=== PATIENT | male | born 1955 | race African-American/Black ===

== ENCOUNTER 2018-05-07 19:33 | Emergency (ER) | payer SELFPAY ==
[~2018-05-07 19:33] MED LIST: ISOVUE-370 76%-LOCM 1 ML ONE
[2018-05-07 20:07] LABS: #Basophils 0.1 thou/uL (0.0-0.2); #Eosinphils 0.1 thou/uL (0.0-0.7); #Lymphocytes 2.7 thou/uL (1.20-3.40); #Monocytes 0.7 thou/uL (0.11-0.59); #Neutrophils 6.8 thou/uL (1.40-6.50); %Basophils 0.6 % (0.0-1.0); %Lymphocytes 25.7 % (21.0-51.0); %Monocytes 6.4 % (0.0-10.0); %Neutrophils 66.2 % (42.0-75.0); Hemoglobin 16.6 g/dL (14.0-18.0); Mean Corpuscular HGB CONC 33.7 g/dL (32.0-36.0); Mean Corpuscular Hemoglobin 33.5 pg (27.0-31.0); Mean Corpuscular Volume 99.4 fL (78.0-98.0); Mean Platelet Volume 8.3 fL (7.4-10.4); Platelet Count 200 thou/uL (130-400); RBC Distribution Width 11.9 % (11.5-14.5); Red Blood Cell (RBC) Count 4.95 mill/uL (4.70-6.10); White Blood Cell (WBC) Count 10.3 thou/uL (4.8-10.8)
[2018-05-07 20:27] LABS: Anion Gap 11 mmol/L (10-20); BUN (Urea Nitrogen) 16 mg/dL (8.4-25.7); Calc. Creatinine Clearance 0 mL/min (70-130); Calcium 9.9 mg/dL (7.8-10.44); Carbon Dioxide 28 mmol/L (22-29); Chloride 104 mmol/L (98-107); Estimated GFR-MDRD 79; Glucose 71 mg/dL (70-105); Potassium 3.9 mmol/L (3.5-5.1); Sodium 139 mmol/L (136-145)
--- NOTE | 2018-05-07 20:43 | CT ---
HEAD CT NONCONTRAST: Date: 05/07/18 INDICATION: Post-traumatic injury, pain. FINDINGS: No evidence of acute intracranial hemorrhage or mass effect, midline shift, or ventriculomegaly. IMPRESSION: No acute intracranial abnormality. Notification of results placed at 1958 hours on 05/07/18. CODE CR. POS: [facility]
--- NOTE | 2018-05-07 20:47 | CT ---
CERVICAL SPINE CT NONCONTRAST: Date: 05/07/18 INDICATION: Post-traumatic neck injury with pain. FINDINGS: Multilevel mild degenerative change of the cervical spine is present. There is no compression fractur e or subluxation. No acute craniocervical distraction injury or facet malalignment. No retropulsion o f bone into the vertebral canal. IMPRESSION: 1. No acute osseous abnormality of the cervical spine. 2. Incidental note of marked prominence of the thyroid gland, indistinct on the basis of this exam. Recommend dedicated thyroid ultrasound, nonemergently, for follow-up. Notification of findings placed to emergency department at 2013 hours on 05/07/18. CODE CR. POS: [facility]
--- NOTE | 2018-05-07 20:52 | CT ---
CT CHEST WITH CONTRAST CT ABDOMEN AND PELVIS WITH CONTRAST CT THORACIC SPINE WITH CONTRAST CT LUMBAR SPINE WITH CONTRAST: DATE: 05/07/18 HISTORY: Post Traumatic Pain FINDINGS/IMPRESSION: There is no evidence of thoracolumbar compression fracture, subluxation, or retropulsion of bone. The sternum is intact. Osseous structures of the pelvis reveal no displaced fracture. There is a radiopa que density with adjacent fragmentation of the right retroperitoneum. This traverses the right L1 tra nsverse process. This could relate to sequelae from remote injury. Correlate with patient's history. No definite acute post-traumatic sequelae of the solid abdominal organs. Marked distention of the gas tric lumen by ingested debris is present. There is pulmonary emphysema. No evidence of pulmonary cont usion, effusion, or pneumothorax. The thoracoabdominal aorta is atraumatic in appearance. There is sc attered vascular disease. There is prostate calcification. Bowel is incompletely evaluated without en teric contrast administration. Telephone call findings placed to ER physician, Dr. Xavier, at 2015 hours on 05/07/18. CODE CR. POS: [facility]
== END 2018-05-07 20:44 | disposition home or self-care (01) ==
LOC: ERS 19:33
DX: S39.012A Strain of muscle, fascia and tendon of lower back, initial encounter (principal); F17.210 Nicotine dependence, cigarettes, uncomplicated; V89.2XXA Person injured in unspecified motor-vehicle accident, traffic, initial encounter
CPT/HCPCS: 36415; 70450; 71260; 72125; 74177; 80048; 85025; G0390; Q9966

== ENCOUNTER 2018-05-15 22:04 | Emergency (ER) | payer SELFPAY ==
[2018-05-15] MEDS ORDERED: Ketorolac Tromethamine 60 MG/2 ML VIAL ONE (22:34)
== END 2018-05-15 22:40 | disposition home or self-care (01) ==
LOC: ERS 22:04
DX: S39.012A Strain of muscle, fascia and tendon of lower back, initial encounter (principal); F17.210 Nicotine dependence, cigarettes, uncomplicated; V43.52XA Car driver injured in collision with other type car in traffic accident, initial encounter
CPT/HCPCS: 96372; J1885